=== PATIENT | male | born 1950 | race Caucasian/White ===

== ENCOUNTER 2023-11-28 12:30 | Emergency (ER) | payer MEDICARE ==
[~2023-11-28] VITALS: Ht 175.3 cm; Wt 75.0 kg
[2023-11-28 12:55] VITALS: O2SAT 98
[2023-11-28] MEDS ORDERED: PERM60CR4 TP (16:14)
[2023-11-28] MEDS ORDERED: ACET-2708 MT (16:14)
[2023-11-28] MEDS: PERMETHRIN 5% CREAM 60GM TOP ONE (17:50)
[2023-11-28 18:10] VITALS: BP 100/59; PULSE 85; RESP 17; TEMP 36.78072; O2SAT 100
== END 2023-11-28 20:34 | disposition home or self-care (01) ==
LOC: ER 12:37
DX: S82.001A Unspecified fracture of right patella, initial encounter for closed fracture (principal); B86 Scabies; W18.30XA Fall on same level, unspecified, initial encounter; Y93.89 Activity, other specified; Y92.89 Other specified places as the place of occurrence of the external cause; Y99.8 Other external cause status
CPT/HCPCS: 99283; 73562; L1830

== ENCOUNTER 2023-12-05 22:26 | Emergency (ER) | payer MEDICARE ==
[~2023-12-05] VITALS: Ht 185.4 cm; Wt 100.0 kg
[~2023-12-05 22:26] MED LIST: ACET-2708 MT; PERM60CR4 TP
[2023-12-05 22:29] VITALS: O2SAT 97
[2023-12-06] MEDS: LIDOCAINE HCL/PF 1% 10 MG/ML 5ML VIAL INFIL ONE (02:04)
[2023-12-06] MEDS: BACITRACIN ZINC OINT UDPKT TOP ONE (02:04)
[2023-12-06] MEDS: TETANUS, DIPHTHERIA, PERTUSSIS VAC/PF 0.5ML (>10YR OLD) IM ONE (02:05)
[2023-12-06] MEDS: SODIUM CHLORIDE 0.9% 1,000 ML IV ONE (03:15)
[2023-12-06 04:00] VITALS: BP 101/63; PULSE 79; RESP 17; TEMP 36.66960; O2SAT 100
== END 2023-12-06 07:15 | disposition left against medical advice (07) ==
LOC: ER 22:26 → EDBEDREQ 12-06 04:44 → EDBEDREQTM 12-06 04:44 → ER 12-06 07:15
DX: S01.81XA Laceration without foreign body of other part of head, initial encounter (principal); W01.0XXA Fall on same level from slipping, tripping and stumbling without subsequent striking against object, initial encounter; Y93.89 Activity, other specified; Y92.89 Other specified places as the place of occurrence of the external cause; Y99.8 Other external cause status
CPT/HCPCS: 99285; 12014; 70450; 71045; 70486; 90715; 90471; J3490; J7030